=== PATIENT | male | born 1985 | race Caucasian/White ===

== ENCOUNTER 2016-11-13 01:06 | Emergency (ER) | payer OTHER ==
[2016-11-13] MEDS ORDERED: LIDOCAINE 2% W/ EPINEPHRINE 20 ML VIAL INJ ONE (01:55)
[2016-11-13 02:20] VITALS: TEMP 97; O2SAT 98
--- NOTE | 2016-11-13 02:40 | ED.PDOC ---
History of Present Illness - General Chief Complaint: Laceration Stated Complaint: Lacerated interior Lip Time Seen by Provider: 11/13/16 02:37 Source: patient, RN notes reviewed, Vital Signs reviewed Exam Limitations: no limitations - History of Present Illness Initial Comments: Patient comes in with a laceration to his lower lip. [place] was fishing [place] off [place] dock hitting his mouth on the railing. Denies any other injuries. No tooth injury. This occurred ~1 hour ago. Timing/Duration: just prior to arrival Severity: moderate Location: face Improving Factors: nothing Worsening Factors: nothing Associated Symptoms: denies symptoms Review of Systems - Review of Systems Constitutional: States: no symptoms reported EENTM: States: see HPI, mouth pain - Lower lip laceration, mouth swelling - Lower lip Respiratory: States: no symptoms reported Cardiology: States: no symptoms reported Musculoskeletal: States: no symptoms reported Skin: States: see HPI Neurological: States: no symptoms reported All other Systems: No Change from Baseline Past Medical History (General) - Patient Medical History Hx Stroke: No Hx Congestive Heart Failure: No Hx Diabetes: No Hx Cancer: No Hx Hepatitis C: No Surgical History: no surgical history - Vaccination History Hx Tetanus, Diphtheria Vaccination: No Hx Influenza Vaccination: Yes Hx Pneumococcal Vaccination: No - Social History Hx Tobacco Use: No Hx Chewing Tobacco Use: No Hx Alcohol Use: Yes - Occas Hx Substance Use: No Hx Substance Use Treatment: No Hx Depression: No Feels Threatened In Home Enviroment: No Feels Threatened In a Relationship: No Hx Physical Abuse: No Hx Emotional Abuse: No Hx Suspected Abuse: No Family Medical History - Family History Grandparents Family History: Unknown Physical Exam - Physical Exam General Appearance: Alert, No apparent distress, Well Developed, Well Groomed, Well Hydrated, Well Nourished Eyes, Ears, Nose, Throat Exam: pharynx normal, other - No tooth tenderness or looseness Neck: non-tender, full range of motion, supple, normal inspection Respiratory: no respiratory distress Extremity: normal range of motion, normal inspection Neurologic: feed adviser II-XII nml as tested, alert, normal mood/affect, oriented x 3 Skin Exam: warm/dry, normal color Skin Problem Location: face - R lower lip Skin Character: swelling, tenderness, other - Y shaped laceration of the inner aspect of lower lip. Minimal bleeding. Comments: Vital Signs 11/13/16 01:15 Temperature 97 F L Pulse Rate [R 94 H Arm] Respiratory 20 Rate Blood Pressure 129/92 [Right Arm] O2 Sat by Pulse 98 Oximetry Progress - EKG/XRAY/CT CT Ordered: No CT Interpretation Call Back: No Procedures - Laceration/Wound Repair Right Lower Jaw Wound Length (cm): 2 - R lower inner lip Wound's Depth, Shape: irregular - Y shaped Wound Explored: no foreign body removed Betadine Prep?: No Anesthesia: Lidocaine w/ Epi Volume Anesthetic (cc's): 1.5 Wound Debrided: minimal Wound Repaired With: sutures Suture Size/Type: 5:0, fast absorbing gut Number of Sutures: 5 Layer Closure?: No Sterile Dressing Applied?: No Splint Applied?: No Sling Applied?: No Departure - Departure Clinical Impression: Laceration of lip without complication Qualifiers: Encounter type: initial encounter Qualified Code(s): S01.511A - Laceration without foreign body of lip, initial encounter Time of Disposition: 02:43 Disposition: Discharge to Home or Self Care Condition: Good Departure Forms: ED Discharge - Pt. Copy, Patient Portal Self Enrollment Instructions: DI for Laceration Repair -- Simple Diet: resume usual diet Activity: increase activity as tolerated Additional Instructions: Sutures should dissolve and go away on own.
[2016-11-13] MEDS ORDERED: ACETAMINOPHEN 500 MG TAB PO ONE (02:44)
[2016-11-13 03:16] VITALS: BP 114/72
== END 2016-11-13 02:40 | disposition home or self-care (01) ==
LOC: ER 01:06
DX: S01.511A Laceration without foreign body of lip, initial encounter (principal); W17.89XA Other fall from one level to another, initial encounter; Y92.89 Other specified places as the place of occurrence of the external cause